=== PATIENT | female | born 1960 ===

== ENCOUNTER 2016-11-27 04:54 | Emergency (ER) | payer MEDICARE, MEDICAID ==
[2016-11-27 04:54] VITALS: BMI 35.9
[2016-11-27 05:32] VITALS: BP 141/85; PULSE 104; RESP 16; TEMP 99.6; O2SAT 99
[2016-11-27] MEDS ORDERED: Sodium Chloride 0.9% 1,000 ML IV STA (05:55)
--- NOTE | 2016-11-27 06:16 | ED PDOC ---
HPI: Abdomen Time Seen by Provider: 11/27/16 05:15 Chief Complaint (Nursing): Abdominal Pain Chief Complaint (Provider): abdominal pain History Per: Patient History/Exam Limitations: no limitations Onset/Duration Of Symptoms: Days (1 week ) Outside of [place] travel?: No Current Symptoms Are (Timing): Still Present Location Of Pain/Discomfort: Diffuse Additional Complaint(s): 56yo female with PMHx including chronic pain (sees pain management), HTN, diabetes, depression presents to the ED with c/o abdominal pain and vomiting x 1 week. Pain is diffuse. Denies fever, diarrhea, or any other medical complaints. Past Medical History Reviewed: Historical Data, Nursing Documentation, Vital Signs Vital Signs: Last Vital Signs Temp 99.6 F 11/27/16 05:27 Pulse 104 H 11/27/16 05:27 Resp 16 11/27/16 05:27 BP 141/85 11/27/16 05:27 Pulse Ox 99 11/27/16 06:29 - Medical History PMH: Anxiety, Back Problems (Herniated Disc), Depression, Diabetes, HTN, Chronic Pain - Surgical History Surgical History: No Surg Hx - Family History Family History: States: No Known Family Hx - Social History Current smoker - smoking cessation education provided: No Alcohol: None Drugs: Denies - Immunization History Hx Tetanus Toxoid Vaccination: No Hx Influenza Vaccination: No Hx Pneumococcal Vaccination: No - Home Medications Home Medications: Ambulatory Orders Medication Instructions Recorded MetFORMIN 500 mg PO BID 02/24/13 Lisinopril 5 mg PO DAILY 09/06/14 Oxycodone 30 mg PO QID 09/06/14 Ondansetron [Zofran] 4 mg PO Q8H PRN #15 tab 11/29/14 Metoclopramide [Reglan] 1 tab PO TID PRN #25 tab 11/26/16 - Allergies Allergies/Adverse Reactions: Allergies Allergy/AdvReac Type Severity Reaction Status Date / Time No Known Allergies Allergy Verified 11/27/16 05:27 Review of Systems ROS Statement: Except As Marked, All Systems Reviewed And Found Negative Constitutional: Negative for: Fever Gastrointestinal: Positive for: Vomiting, Abdominal Pain. Negative for: Diarrhea Physical Exam - Reviewed Nursing Documentation Reviewed: Yes Vital Signs Reviewed: Yes - Physical Exam Appears: Positive for: Well, No Acute Distress (pt noted to be moaning ) Head Exam: Positive for: ATRAUMATIC, NORMAL INSPECTION, NORMOCEPHALIC Skin: Positive for: Normal Color, Warm, Dry Eye Exam: Positive for: Normal appearance, EOMI, PERRL ENT: Positive for: Normal ENT Inspection Neck: Positive for: Normal, Painless ROM, Supple Cardiovascular/Chest: Positive for: Regular Rate, Rhythm. Negative for: Murmur , Tachycardia Respiratory: Positive for: Normal Breath Sounds. Negative for: Wheezing, Respiratory Distress Gastrointestinal/Abdominal: Positive for: Normal Exam, Soft. Negative for: Tenderness Back: Positive for: Normal Inspection. Negative for: L CVA Tenderness, R CVA Tenderness Extremity: Positive for: Normal ROM. Negative for: Deformity, Swelling Neurologic/Psych: Positive for: Alert, Oriented - Laboratory Results Result Diagrams: 11/27/16 06:12 11/27/16 06:12 - ECG O2 Sat by Pulse Oximetry: 99 Pulse Ox Interpretation: Normal (RA) Medical Decision Making Medical Decision Makin: Impression: abdominal pain and vomiting in setting of hx of chronic pain Plan: Labs IVF, Pepcid 20mg IVP, Toradol 30mg IV, Zofran 4mg IV CT A/P reassess Patient states the only medication that works for her is Dilaudid. Patient advised she will not receive narcotics at this time. Patient s/o to Dr. Donaldson at [address] and re-eval. Scribe Attestation: Documented by Zoie Jordan acting as a scribe for Radha Suero MD. Provider Scribe Attestation: All medical record entries made by the Scribe were at my direction and personally dictated by me. I have reviewed the chart and agree that the record accurately reflects my personal performance of the history, physical exam, medical decision making, and the department course for this patient. I have also personally directed, reviewed, and agree with the discharge instructions and disposition. Disposition - Clinical Impression Clinical Impression: Abdominal pain, Abdominal pain - Patient ED Disposition Is Patient to be Admitted: Transfer of Care - Disposition Referrals: [facility] [Outside] [facility] [Outside] Disposition: Transfer of Care Disposition Time: 07:00 Condition: GOOD Additional Instructions: follow up with your primary doctor in 1-2 days follow up with your pain management doctor return to the ED with any worsening or concerning symptoms. Instructions: Abdominal Pain (ED) Patient Signed Over To: Jonnathan Donaldson Handoff Comments: pending CT and re-eval
[2016-11-27 06:28] LABS: CHLORIDE 100 mmol/L (98-107)
[2016-11-27 06:29] LABS: BASO % 0.4 % (0.0-2.0); EOS % 0.3 % (0.0-4.0); HEMATOCRIT 40.5 % (34.0-47.0); LYMPH # 2.4 K/uL (1.0-4.3); LYMPH % 35.2 % (20.0-40.0); MEAN CELL VOLUME 89.1 fl (81.0-99.0); MEAN CORPUSCULAR HGB CONC 33.7 g/dL (33.0-37.0); MEAN PLATELET VOLUME 10.5 fl (7.2-11.7); MONO # 0.3 K/uL (0.0-0.8); MONO % 5.1 % (0.0-10.0); NRBC % 0.1 % (0.0-0.0); POTASSIUM 4.1 MMOL/L (3.6-5.0); RED CELL DISTRIBUTION WIDTH 11.9 % (11.5-14.5); SODIUM 139 mmol/l (132-148); WHITE BLOOD COUNT 6.7 K/uL (4.8-10.8)
[2016-11-27 06:31] LABS: ALB/GLOB RATIO 1.1 (1.0-2.1); ALKALINE PHOSPHATASE 79 U/L (38-126); AST/SGOT 21 U/L (14-36); BILIRUBIN,TOTAL 0.7 mg/dl (0.2-1.3); BLOOD UREA NITROGEN 10 mg/dl (7-17); CARBON DIOXIDE 25 mmol/L (22-30); GFR AFRICAN-AMERICAN > 60; TOTAL PROTEIN 8.6 G/DL (6.3-8.2)
[2016-11-27 06:32] LABS: ALT/SGPT 30 U/L (9-52); CALCIUM 9.2 mg/dL (8.4-10.2); GLUCOSE,RANDOM 352 mg/dL (65-105); LIPASE 37 U/L (23-300)
--- NOTE | 2016-11-27 06:59 | CT ---
EXAM: CT Abdomen and Pelvis Without Intravenous Contrast CLINICAL HISTORY: 56 years old, female; Pain; Abdominal pain; Flank; Right; Additional info: Abd pain TECHNIQUE: Axial computed tomography images of the abdomen and pelvis without intravenous contrast. This CT exam was performed using one or more of the following dose reduction techniques: automated exposure control, adjustment of the mA and/or kV according to patient size, and/or use of iterative reconstruction technique. Coronal and sagittal reformatted images were created and reviewed. EXAM DATE/TIME: 11/27/2016 6:20 AM COMPARISON: None is available. FINDINGS: LOWER THORAX: Small hiatal hernia. ABDOMEN: LIVER: Fatty infiltration of the liver, with areas of focal fatty sparing along the gallbladder fossa. The liver is enlarged. GALLBLADDER AND BILE DUCTS: No CT evidence of acute cholecystitis. No evidence of significant biliary ductal dilatation. PANCREAS: No CT evidence of acute pancreatitis. SPLEEN: No acute abnormality of the spleen identified. ADRENALS: No acute abnormality of the adrenal glands identified. KIDNEYS AND URETERS: Bilateral nonobstructing renal stones, the largest being a 9 mm nonobstructing stone in the midpole region right kidney. No evidence of hydroureteronephrosis. STOMACH AND BOWEL: Scattered colonic diverticulosis, without evidence of diverticulitis. No acute abnormality of the bowel identified. No evidence of bowel obstruction. APPENDIX: Appendix is seen, and is within normal limits in appearance. PELVIS: BLADDER: No acute abnormality of the bladder identified. REPRODUCTIVE: Uterus appears mildly enlarged, which may be secondary to fibroids. No evidence of large adnexal masses. ABDOMEN and PELVIS: INTRAPERITONEAL SPACE: No evidence of free intraperitoneal air or fluid. BONES/JOINTS: Very mild scoliotic curvature of the spine. No acute fractures or other acute bony abnormality visualized. SOFT TISSUES: No acute abnormality of the visualized soft tissues is seen. VASCULATURE: No evidence of abdominal aortic aneurysm. No evidence of periaortic hemorrhage. LYMPH NODES: No evidence of diffuse lymphadenopathy. IMPRESSION: - No evidence of significant acute process on this unenhanced exam. - Bilateral nonobstructing renal stones. No evidence of obstructive uropathy. - Enlarged, fatty liver. - See above for remaining findings.
--- NOTE | 2016-11-30 15:24 | CARD ---
APPROVED REPORT EKG Measurement Heart [id number] ID [id number] <Conclusion> Normal sinus rhythm Normal ECG
== END 2016-11-27 08:05 | disposition home or self-care (01) ==
LOC: H.ER 04:54
DX: R10.9 Unspecified abdominal pain (principal); E11.9 Type 2 diabetes mellitus without complications; Z86.59 Personal history of other mental and behavioral disorders; G89.29 Other chronic pain; N20.0 Calculus of kidney; I10 Essential (primary) hypertension
CPT/HCPCS: 74176; 80053; 82948; 83690; 85025; 93005; 96374; 99283; J1885; J2405; J7040

== ENCOUNTER 2018-01-28 15:05 | Emergency (ER) | payer MEDICARE, OTHER ==
[2018-01-28 15:06] VITALS: BMI 35.0
[2018-01-28 15:14] VITALS: TEMP 98.7; O2SAT 98
[2018-01-28 16:19] LABS: BASO % 0.6 % (0.0-2.0); HEMOGLOBIN 13.8 g/dL (12.0-16.0); LYMPH # 1.2 K/uL (1.0-4.3); LYMPH % 16.3 % (20.0-40.0); MEAN CELL VOLUME 90.1 fl (81.0-99.0); MEAN CORPUSCULAR HEMOGLOBIN 30.7 pg (27.0-31.0); MEAN CORPUSCULAR HGB CONC 34.1 g/dL (33.0-37.0); MEAN PLATELET VOLUME 10.5 fl (7.2-11.7); MONO # 0.2 K/uL (0.0-0.8); MONO % 3.2 % (0.0-10.0); NEUT # 5.9 K/uL (1.8-7.0); NEUT % 79.9 % (50.0-75.0); NRBC % 0.2 % (0.0-0.0); RBC 4.48 Mil/uL (3.80-5.20); WHITE BLOOD COUNT 7.4 K/uL (4.8-10.8)
[2018-01-28 16:34] LABS: ALB/GLOB RATIO 1.3 (1.0-2.1); ALBUMIN 4.7 g/dL (3.5-5.0); ALT/SGPT 28 U/L (9-52); AST/SGOT 21 U/L (14-36); BLOOD UREA NITROGEN 8 mg/dl (7-17); CALCIUM 10.1 mg/dL (8.4-10.2); GFR AFRICAN-AMERICAN > 60; GFR NON-AFRICAN AMERICAN > 60; LIPASE 23 U/L (23-300)
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
[2018-01-28 18:05] VITALS: BP 139/90; PULSE 90; RESP 18
== END 2018-01-28 17:43 | disposition left against medical advice (07) ==
LOC: H.ER 15:05
DX: R10.13 Epigastric pain (principal); G89.29 Other chronic pain; E11.9 Type 2 diabetes mellitus without complications; Z79.4 Long term (current) use of insulin; I10 Essential (primary) hypertension; K50.90 Crohn's disease, unspecified, without complications; F41.9 Anxiety disorder, unspecified
CPT/HCPCS: 80053; 83690; 84484; 85025; 96374; 99284; J1885